=== PATIENT | female | born 2000 | race Caucasian/White ===

== ENCOUNTER 2021-09-01 09:16 | Outpatient (CLI) | payer OTHER, SELFPAY ==
[2021-09-01 10:28] LABS: Basophils Absolute Auto 0.1 K/mm3 (0.0-0.1); Basophils Percent Auto 0.9 % (0.2-1.2); Eosinophils Absolute Auto 0.2 K/mm3 (0-0.3); Eosinophils Percent Auto 3.5 % (0-4.4); Hematocrit 41.1 % (37.0-47.0); Hemoglobin 13.8 g/dL (12.0-15.0); Immature Granulocyte Absolute 0.02 K/mm3 (0.00-0.031); Immature Granulocyte Percent A 0.4 % (0-0.5); Lymphocytes Absolute Auto 1.87 K/mm3 (0.9-3.2); Lymphocytes Percent Auto 32.7 % (18.3-44.2); Mean Corpuscular HGB Conc 33.6 g/dl (32-36); Mean Corpuscular Hemoglobin 31.3 pg (26-34); Mean Corpuscular Volume 93.2 fl (80-100); Mean Platelet Volume 9.6 fl (7.4-10.4); Monocytes Absolute Auto 0.5 K/mm3 (0.1-0.6); Monocytes Percent Auto 9.1 % (2.6-8.5); Neutrophils Absolute Auto 3.1 K/mm3 (1.3-6.7); Neutrophils Percent Auto 53.4 % (45.5-73.1); Platelet Count Result 180 k/mm3 (150-375); Red Blood Count 4.41 M/mm3 (4.2-5.4); White Blood Count 5.7 K/mm3 (4.5-10.0)
[2021-09-01 10:45] LABS: Hemoglobin A1C 5.1 % (<5.7)
[2021-09-01 10:47] LABS: Iron 102 ug/dL (37-170)
[2021-09-01 10:48] LABS: Alanine Aminotransferase 11 U/L (6-35); Albumin Level 4.4 g/dL (3.5-5.1); Alkaline Phosphatase 34 U/L (38-126); Anion Gap 5 mmol/L (8-16); Aspartate Amino Transferase 24 U/L (14-36); Bilirubin,Total 0.5 mg/dL (0.2-1.3); Blood Urea Nitrogen 12 mg/dL (7-17); Calcium 8.4 mg/dL (8.4-10.2); Carbon Dioxide 26 mmol/L (22-30); Chloride 107 mmol/L (98-107); Cholesterol 131 mg/dL (0-200); Estimated Glomerular Filt Rate > 60; Glucose 80 mg/dL (65-110); HDL Direct 54 mg/dL; Potassium 3.9 mmol/L (3.4-5.0); Sodium 138 mmol/L (137-145); Triglycerides 40 mg/dL (<150)
[2021-09-01 10:56] LABS: LDL Cholesterol Direct 55 mg/dL
[2021-09-01 11:16] LABS: Hepatitis B Surface Antigen Negative (Negative)
[2021-09-01 11:22] LABS: HAV RESULT Negative (Negative); Hepatitis B Core IgM Result Negative (Negative)
[2021-09-01 11:33] LABS: Hepatitis C Virus Antibody Negative (Negative)
[2021-09-01 11:52] LABS: Folic Acid 7.5 ng/mL (2.76->20)
[2021-09-02 16:34] LABS: Toxigenic C. Diff NEGATIVE (NEGATIVE)
== END 2021-09-01 09:17 | disposition home or self-care (01) ==
LOC: ANHLAB 09:20
PROVIDERS: PCP Nurse Practitioner Family; Visit Provider Family Medicine Sports Medicine
DX: R10.30 Lower abdominal pain, unspecified (principal); R11.0 Nausea; R19.7 Diarrhea, unspecified
CPT/HCPCS: 36415; 80053; 80061; 80074; 82607; 82746; 83036; 83540; 84443; 85025; 87045; 87177; 87209; 87427; 87493

== ENCOUNTER 2023-04-20 14:37 | Emergency (ER) | payer OTHER, SELFPAY ==
--- NOTE | ~2023-04-20 | XR_ITS ---
EXAM: XR knee RT 3V DATE: 04/20/2023 17:45 HISTORY: right knee pain, STATES PREVIOUS INJURY . COMPARISON: 12/09/2018, images only; MR right knee 03/14/2019. FINDINGS: Normal mineralization. No fracture or dislocation. No lytic or blastic lesion. Joint space s are maintained. No erosion or periosteal change. Soft tissues within normal limits. IMPRESSION: No acute osseous finding in the right knee. Reviewed, dictated and finalized at location K. MOUNTER OPERATOR
[2023-04-20 15:09] VITALS: BP 121/81; PULSE 83; RESP 18; TEMP 36.3; O2SAT 100
--- NOTE | 2023-04-20 18:45 | ED.GENADULT ---
HPI - General Adult General Chief complaint: Extremity Injury, Lower Stated complaint: knee injury Time Seen by Provider: 04/20/23 17:34 History of Present Illness HPI narrative: 23-year-old female presenting to the emergency department for evaluation of right knee pain. Patient states for the last 6 years she has had intermittent knee pain. Patient states the last few days any pain has acutely worsened. Patient denies a specific falls or injuries. Patient describes circumferential knee pain. Related Data Home Medications Medication Instructions Recorded Confirmed ibuprofen 200 mg capsule 200 mg PO Q6H PRN 01/22/19 Allergies Allergy/AdvReac Type Severity Reaction Status Date / Time latex Allergy Rash Verified 04/20/23 17:32 Review of Systems Review of Systems: All systems reviewed & are unremarkable except as noted in HPI and below PMFSH Past Medical History Medical History (Updated 04/20/23 @ 18:49 by Amandeep Scott MD) Patella-femoral syndrome Right knee pain Family History Family History Other Diabetes mellitus Family history of kidney disease Hypertension Social History Social History Smoking status: Never smoker Exam Narrative: APPEARANCE: Well appearing, no pain, no distress, well-nourished. HEAD: normocephalic, atraumatic. EYES: PERRLA/EOMI, conjunctivae clear. NOSE: Normal no drainage NECK: Supple. No adenopathy, no masses. RESPIRATORY: Airway patent, respirations nonlabored. Clear to auscultation bilaterally, no rales, rhonchi, wheezing. CARDIOVASCULAR: Regular rate and rhythm without murmurs rubs or gallops. ABDOMINAL: Soft, nontender, nondistended, normal bowel sounds MUSCULOSKELETAL: Moves all extremities. anterior, posterior and bilateral knee pain with no significant effusion, deformity or erythema NEURO: Alert. Cranial nerves II through XII intact. Grossly intact SKIN: Warm, dry. Normal Color Course Course Emergency Course: 23 year old female presenting to the emergency department for evaluation of right knee pain. X-ray showed no acute fracture dislocation. Patient was provided knee immobilizer crutches for limited weight-bearing. Patient was encouraged of close follow-up with Orthopedics. All questions concerns were addressed patient was well-appearing at time of discharge. Vital Signs Vital signs: Vital Signs Temperature 97.4 F L 04/20/23 15:09 Pulse Rate 83 04/20/23 15:09 Respiratory Rate 18 04/20/23 15:09 Blood Pressure 121/81 04/20/23 15:09 Pulse Oximetry 100 04/20/23 15:09 Oxygen Delivery Room Air 04/20/23 15:09 Temperature 97.4 F L 04/20/23 15:09 Pulse Rate 72 04/20/23 18:56 Respiratory Rate 18 04/20/23 18:56 Blood Pressure 116/62 04/20/23 18:56 Pulse Oximetry 100 04/20/23 18:56 Oxygen Delivery Room Air 04/20/23 15:09 Medical Decision Making Differential Diagnosis Differential Diagnosis: knee effusion, septic arthritis, internal derangement Vital Signs Vital Signs: Vital Signs Temperature 97.4 F L 04/20/23 15:09 Pulse Rate 83 04/20/23 15:09 Respiratory Rate 18 04/20/23 15:09 Blood Pressure 121/81 04/20/23 15:09 Pulse Oximetry 100 04/20/23 15:09 Oxygen Delivery Room Air 04/20/23 15:09 Temperature 97.4 F L 04/20/23 15:09 Pulse Rate 72 04/20/23 18:56 Respiratory Rate 18 04/20/23 18:56 Blood Pressure 116/62 04/20/23 18:56 Pulse Oximetry 100 04/20/23 18:56 Oxygen Delivery Room Air 04/20/23 15:09 Discharge Plan Discharge Clinical Impression: Right knee pain Patient Disposition: Home, Self-Care Condition: Stable Instructions: Antibiotic Form, Crutch Instructions (ED), Knee Immobilizer (ED) Additional Instructions: Tylenol and ibuprofen for pain control. Knee immobilizer for increased comfort and stability. Crutches for limited w
[2023-04-20 18:56] VITALS: BP 116/62; PULSE 72; RESP 18; O2SAT 100
== END 2023-04-20 18:57 | disposition home or self-care (01) ==
PROVIDERS: Emergency Provider Emergency Medicine
DX: M25.561 Pain in right knee (principal)
CPT/HCPCS: 73562; 99283

== ENCOUNTER 2023-11-28 16:09 | Emergency (ER) | payer OTHER, SELFPAY ==
--- NOTE | 2023-11-28 16:12 | ED.URI ---
HPI - URI/Sore Throat General Chief Complaint: Upper Respiratory Infection Stated Complaint: Sinus/Bodyaches Time Seen by Provider: 11/28/23 16:33 Source: patient, RN notes reviewed and old records reviewed Mode of arrival: ambulatory Limitations: no limitations History of Present Illness HPI Narrative: 23-year-old female presents to the [facility] with complaints of body aches, sinus congestion since yesterday. Requesting a covid test Related Data Allergies Allergy/AdvReac Type Severity Reaction Status Date / Time latex Allergy Rash Verified 11/28/23 16:15 Review of Systems Review of Systems: All systems reviewed & are unremarkable except as noted in HPI and below Constitutional: Constitutional: Reports as per HPI and Reports body ache(s) Eyes: Eyes: Reports no additional eye complaints ENT: Reports as per HPI and Reports nasal discharge Cardiovascular: Cardiovascular: Reports no additional cardiovascular complaints, Denies chest pain and Denies dyspnea Respiratory: Respiratory: Reports no additional respiratory complaints, Denies chest congestion, Denies cough and Denies dyspnea Gastrointestinal: Gastrointestinal: Reports no additional gastrointestinal complaints, Denies abdominal pain, Denies nausea and Denies vomiting Musculoskeletal: Musculoskeletal: Reports no additional musculoskeletal complaints Integumentary/Breasts: Skin/Breast: Reports system reviewed and no additional complaints, except as docu Neurologic: Reports system reviewed and no additional complaints, except as documented Psychiatric: Psychiatric: Reports no additional psychiatric complaints Allergic/Immunologic: Allergic/Immunologic: Reports no additional allergic/immunologic complaints PMFSH Past Medical History Medical History Patella-femoral syndrome Right knee pain Family History Family History Other Diabetes mellitus Family history of kidney disease Hypertension Social History Social History Smoking status: Never smoker Comments At the time of my signature, I reviewed and agree with the nursing past medical, surgical, social, and family history. There is no relevant family history pertinent to the patient complaint. Exam Const: General: cooperative, healthy appearing, comfortable, no acute distress, well developed, alert and well nourished Nutritional Appearance: well nourished Orientation/consciousness: patient oriented x3 Limitations: no limitations HENMT: Head: normal to inspection Ears: hearing grossly normal bilaterally and external ears normal Face/Nose/Sinus: Normal external nose present, Normal nares present, Normal nasal mucous membranes and turbinates present, normal facial exam and face symmetric Face and sinus: normal facial exam and face symmetric Throat: uvula midline, postnasal drainage and no uvular edema Eyes: General: appearance normal, both eyes and all related structures Alignment and Position: alignment normal Periorbital: periorbital findings normal Neck: Neck: normal visual inspection, full ROM, no lymphadenopathy and no meningeal signs Chest: Chest palpation & inspection: normal inspection of the chest Resp: Effort & Inspection: normal respiratory effort and able to speak in complete sentences Cardio: Rate: regular rate Skin: General skin exam: normal color and no rashes or lesions noted Lesions: no lesions Rashes: no rashes Trauma: no lacerations or abrasions Wounds: no wounds Neuro: General: patient oriented x3, gait normal, tone normal, moves all extremities and no meningeal signs Cranial nerves: Yes Equal, round and reactive pupils present Cognition (Neuro): normal cognition Speech: normal speech Gait exam (Neuro): Normal gait present Extrem: General: normal to inspection, full ROM, capillary refill normal and omar
[2023-11-28 16:15] VITALS: BP 101/66; PULSE 75; RESP 14; TEMP 37.1; O2SAT 100
[2023-11-28 17:12] LABS: EDCOVIDSCREEN Negative (Negative)
== END 2023-11-28 16:47 | disposition home or self-care (01) ==
PROVIDERS: Emergency Provider Nurse Practitioner
DX: J06.9 Acute upper respiratory infection, unspecified (principal); R09.82 Postnasal drip; Z20.822 Contact with and (suspected) exposure to COVID-19
CPT/HCPCS: 87426; 99212; G0463

== ENCOUNTER 2024-02-13 17:49 | Emergency (ER) | payer OTHER, SELFPAY ==
--- NOTE | ~2024-02-13 | XR_ITS ---
EXAMINATION: XR knee RT min 4V DATE: 02/13/2024 18:28 INDICATION: Right knee pain. TECHNIQUE: 4 views of right knee were obtained. COMPARISON: Right knee radiographs 04/20/2023 FINDINGS: Alignment is normal. No fracture. Joint spaces are normal. No knee joint effusion. IMPRESSION: 1. Normal right knee. Reviewed, dictated and finalized at location A. ESTATE ASSISTANT IMPRESSION: 1. Normal right knee.
[2024-02-13 17:55] VITALS: BP 115/68; PULSE 74; RESP 16; TEMP 36.3; O2SAT 93
--- NOTE | 2024-02-13 21:30 | ED.LOWEXIN ---
HPI - Extremity Injury (Lower) General Chief Complaint: Extremity Injury, Lower Stated Complaint: right knee injury Time Seen by Provider: 02/13/24 20:26 History of Present Illness HPI Narrative: Patient is a 24-year-old female who reports her knee gave out on me when she was at work earlier today. She reports she is an active person and has had right knee pain intermittently since 2018. Patient endorses significant pain on the sides of her right knee, along with pain behind her knee. She denies hearing pops, denies any redness, calf pain, or recent fevers. Patient endorses periodically numbness and tingling in her right lower extremity. She denies any medical history related to this visit. Related Data Allergies Allergy/AdvReac Type Severity Reaction Status Date / Time latex Allergy Rash Verified 11/28/23 16:15 Review of Systems Review of Systems: All systems reviewed & are unremarkable except as noted in HPI and below PMFSH Past Medical History Medical History (Updated 02/13/24 @ 21:37 by Anya Dalton APRN) Patella-femoral syndrome Right knee pain Family History Family History Other Diabetes mellitus Family history of kidney disease Hypertension Social History Social History Smoking status: Never smoker Exam Narrative: GENERAL: Well appearing, well-nourished, non-toxic, in no acute distress. HEAD: Normocephalic, atraumatic. NECK: Supple. No adenopathy, no masses. RESPIRATORY: Airway patent, respirations nonlabored. Clear to auscultation bilaterally, no rales, rhonchi, wheezing. CARDIOVASCULAR: Regular rate and rhythm without murmurs, rubs, or gallops. Peripheral pulses 2+ and equal bilaterally. ABDOMINAL: Soft, nontender, nondistended, no hepatosplenomegaly. Normoactive BS. MUSCULOSKELETAL: Moves all extremities. Strength/ROM intact without gross deformities. SKIN: Warm, dry, normal color. No rashes. NEURO: A&O X3. Speech clear. Cranial nerves II-XII grossly intact. Steady gait. No ataxic movements. PSYCHIATRIC: Appropriate mood and affect. Normal interaction. Course Vital Signs Vital signs: Vital Signs Temperature 36.3 C L 12/12/24 17:55 Pulse Rate 74 02/13/24 17:55 Respiratory Rate 16 02/13/24 17:55 Blood Pressure 115/68 02/13/24 17:55 Pulse Oximetry 93 02/13/24 17:55 Temperature 36.3 C L 02/13/24 17:55 Pulse Rate 74 02/13/24 17:55 Respiratory Rate 16 02/13/24 17:55 Blood Pressure 115/68 02/13/24 17:55 Pulse Oximetry 93 02/13/24 17:55 MDM - Extremity Injury (Lower) MDM Narrative Medical decision making narrative: Patient is a 24-year-old female who reports her knee gave out on me when she was at work earlier today. She reports she is an active person and has had right knee pain intermittently since 2018. Patient endorses significant pain on the sides of her right knee, along with pain behind her knee. She denies hearing pops, denies any redness, calf pain, or recent fevers. Patient endorses periodically numbness and tingling in her right lower extremity. She denies any medical history related to this visit. Labs Ordered: None needed Imaging Ordered: R knee x-ray Results: Patient's right knee x-ray indicates Alignment is normal. No fracture. Joint spaces are normal. No knee joint effusion. Diagnosis: right knee strain Risks: Well's Score: zero Consults: orthopedics, outpatient Patient Education/Shared MDM: Results shared with patient. She will be discharged home with a prescription for steroids, NSAIDs, and a knee immobilizer. Patient should follow-up with orthopedics as soon as possible. She verbalizes understanding and is agreement with plan. 2130- Patient is in agreement with current treatment plan. All questions answered. Vital signs stable at time of discharge. Differential Diagnosis Differential diagnosis: Likely other (knee strain, knee sprain, meniscus tear) Imaging Data Attestation: I personally reviewed and interpreted this imaging study as follows: Radiologist's impression: Impressions Knee X-Ray 02/13/24 18:29 IMPRESSION: 1. Normal right knee. Discharge Plan Discharge Clinical Impression: Right knee pain Patient Disposition: Home, Self-Care Condition: Stable Instructions: Antibiotic Form, Knee Pain (ED) Additional Instructions: Please return to the ER with an worsening symptoms. Follow-up with primary care provider in the next 2-3 days. Take all medications as prescribed. Patient Language: [place] Follow-up/Referrals: PHYSICIAN,TUFT MACHINE OPERATOR [Primary Care Provider] -
== END 2024-02-13 22:30 | disposition home or self-care (01) ==
PROVIDERS: Emergency Provider Registered Nurse
DX: M25.561 Pain in right knee (principal)
CPT/HCPCS: 73564; 99283

== ENCOUNTER 2024-04-02 10:47 | Emergency (ER) | payer OTHER, SELFPAY ==
--- NOTE | ~2024-04-02 | XR_ITS ---
EXAMINATION: XR shoulder RT min 2V DATE: 04/02/2024 11:17 INDICATION: Right shoulder dislocation. TECHNIQUE: 2 views of right shoulder were obtained. COMPARISON: None. FINDINGS: Alignment is normal. No fracture. Joint spaces are normal. IMPRESSION: 1. Normal right shoulder. Reviewed, dictated and finalized at location A. ER HELPER IMPRESSION: 1. Normal right shoulder.
--- NOTE | 2024-04-02 10:53 | ED.UPPEXIN ---
HPI - Extremity Injury (Upper) General Chief Complaint: Extremity Injury, Upper Stated Complaint: right clavicle popped out of place Time Seen by Provider: 04/02/24 10:52 Source: patient Mode of arrival: ambulatory Limitations: no limitations History of Present Illness HPI narrative: Patient is a 24-year-old female who presents with right shoulder pain after dragging large heavy box at work on Saturday. Patient states she has had pain for the last 3 days. Patient has full range of motion with the pain. Denies any numbness, tingling or weakness. Related Data Home Medications ?Medication ?Instructions ?Recorded ?Confirmed ?Last Taken ?Type No Home Medications 04/02/24 04/02/24 Unknown History Allergies Allergy/AdvReac Type Severity Reaction Status Date / Time latex Allergy Rash Verified 04/02/24 11:02 Review of Systems Review of Systems: All systems reviewed & are unremarkable except as noted in HPI and below Constitutional: Constitutional: Denies body ache(s), Denies chills, Denies fatigue, Denies fever(s), Denies headache(s), Denies malaise and Denies weakness Eyes: Eyes: Denies blurry vision, Denies irritation and Denies loss of vision ENT: Denies otalgia, Denies headache(s), Denies nasal discharge, Denies sinus pain and Denies sore throat Cardiovascular: Cardiovascular: Denies chest pain, Denies irregular heart rhythm and Denies dyspnea Respiratory: Respiratory: Denies dyspnea Gastrointestinal: Gastrointestinal: Denies abdominal pain, Denies melena, Denies hematochezia, Denies diarrhea, Denies nausea and Denies vomiting Musculoskeletal: Musculoskeletal: Denies back pain, Denies myalgias and Reports arthralgias Integumentary/Breasts: Skin/Breast: Denies pruritus and Denies rash Neurologic: Denies headache(s), Denies loss of vision and Denies weakness Psychiatric: Psychiatric: Reports no additional psychiatric complaints Endocrine: Endocrine: Denies fatigue PMFSH Past Medical History Medical History (Updated 04/02/24 @ 11:50 by Silke Lawler APRN) Patella-femoral syndrome Right knee pain Family History Family History Other Diabetes mellitus Family history of kidney disease Hypertension Social History Social History Smoking status: Never smoker Comments At time of signature, agree with nursing past medical, surgical, social and family history. There is no relevant family history pertinent to the presenting complaint. Exam Const: General: cooperative, healthy appearing, comfortable, no acute distress and well nourished Nutritional Appearance: well nourished Orientation/consciousness: patient oriented x3 Limitations: no limitations HENMT: Head: normal to inspection, normocephalic and atraumatic Ears: hearing grossly normal bilaterally and external ears normal Face/Nose/Sinus: Normal external nose present, normal facial exam and face symmetric Face and sinus: normal facial exam and face symmetric Mouth: Yes lip normal Eyes: General: appearance normal, both eyes and all related structures Alignment and Position: alignment normal and position normal Periorbital: periorbital findings normal Eyelids: eyelids normal Pupils: Equal, round and reactive pupils present EOM: EOMs intact bilaterally Neck: Neck: normal visual inspection, full ROM and supple Chest: Chest palpation & inspection: normal inspection of the chest Resp: Effort & Inspection: normal respiratory effort and able to speak in complete sentences Auscultation: clear to auscultation bilaterally Cardio: Rate: regular rate Rhythm: regular rhythm Heart sounds: S1 normal heart sound present and S2 normal heart sound present GI: Inspection: normal to inspection Skin: General skin exam: normal color and no rashes or lesions noted Neuro: General: patient oriented x3 and moves all extremities Cranial nerves: Yes Equal, round and reactive pupils present Speech: normal speech Gait exam (Neuro): Normal gait present Extrem: General: normal to inspection, full ROM and no edema Right upper extremity: shoulder/upper arm tenderness of the clavicle laterally, axillary nerve sensory function normal and abnormal ROM pain with active ROM in ADduction and in ABduction; no swelling, no ecchymosis, no deformity and no unusual warmth Psych: Appearance: grossly normal and well kempt Mental Status: mental status grossly normal Speech and movement: Normal speech and movement present Affect: normal affect Attitude: cooperative Thought process: Normal thought process present Course Course Emergency Course: Patient is aware of diagnosis, understands and agrees to treatment plan. Anticipatory guidance given. Patient agrees to follow-up as directed and is aware of reasons to seek care at the emergency department. Portions of this record may have been created with voice recognition software Level of Care: Express Care Visit Vital Signs Vital signs: Vital Signs Temperature 35.8 C L 04/02/24 11:05 Pulse Rate 64 04/02/24 11:05 Respiratory Rate 16 04/02/24 11:05 Blood Pressure 107/74 04/02/24 11:05 Pulse Oximetry 99 04/02/24 11:05 Oxygen Delivery Room Air 04/02/24 11:05 Temperature 35.8 C L 04/02/24 11:05 Pulse Rate 64 04/02/24 11:05 Respiratory Rate 16 04/02/24 11:05 Blood Pressure 107/74 04/02/24 11:05 Pulse Oximetry 99 04/02/24 11:05 Oxygen Delivery Room Air 04/02/24 11:05 Reviewed MDM - Extremity Injury (Upper) MDM Narrative Medical decision making narrative: Pt well hydrated appearing, in no respiratory distress, hemodynamically stable. Recommend supportive care. The patient is stable at time of discharge the clinical impression was discussed and the patient was given the opportunity to ask questions, which were addressed as completely as possible given the information available at present. Anticipatory guidance and return to care precautions were discussed and the importance of primary care follow-up was stressed and encouraged. The patient voiced understanding of the plan, indications to return, and the need for follow-up. Exam findings show no acute concerns or changes Patient is appropriate for outpatient treatment and follow-up. Differential Diagnosis Differential diagnosis: Likely dislocation of shoulder, fracture of humerus, fracture of clavicle and other (Shoulder strain) Medical Records Attestation: I reviewed the patient's medical records. Imaging Data Radiologist's impression: EXAMINATION: XR shoulder RT min 2V DATE: 04/02/2024 11:17 INDICATION: Right shoulder dislocation. TECHNIQUE: 2 views of right shoulder were obtained. COMPARISON: None. FINDINGS: Alignment is normal. No fracture. Joint spaces are normal. IMPRESSION: 1. Normal right shoulder. Discharge Plan Discharge Clinical Impression: Right shoulder strain Patient Disposition: Home, Self-Care Condition: Stable Instructions: Shoulder Sprain (ED) Additional Instructions: Xray showed no fracture. Minimize activities that aggravate the condition The RICE protocol. Follow the RICE protocol as soon as possible after your injury:. Ice should be immediately applied to keep the swelling down. It can be used for 20 to 30 minutes, three or four times daily. Do not apply ice directly to your skin. Elevate your arm above the level of your heart as often as possible during the first 48 hours. For pain, you may take: Tylenol 650-1000mg by mouth every 4-6 hours. Do not exceed 4000mg in 24 hours. Advil (Ibuprofen) 600 mg by mouth every 6 hours. Do not exceed 2400mg in 24 hours. 8 AM: Tylenol 11 AM: Ibuprofen 2 PM: Tylenol 5 PM: Ibuprofen 8 PM: Tylenol 11 PM: Ibuprofen 2 AM: Tylenol 5 AM: Ibuprofen Please schedule a follow-up visit with your personal physician for further evaluation and treatment within 1week OR If your symptoms persist, change or worsen significantly before you can contact your personal physician then please, without delay, go to the emergency department for further evaluation. Patient Language: Somali Prescriptions: No Action No Home Medications Follow-up/Referrals: PHYSICIAN,ENTERPRISE APPLICATION ADMINISTRATOR [Primary Care Provider] - Ulisses Quiles MD [Physician] - 3 Days Stand Alone Forms: Work/School Release IP Time of Disposition: 11:50
[2024-04-02 11:05] VITALS: BP 107/74; PULSE 64; RESP 16; TEMP 35.8; O2SAT 99
== END 2024-04-02 11:55 | disposition home or self-care (01) ==
PROVIDERS: Emergency Provider Nurse Practitioner Family
DX: S43.401A Unspecified sprain of right shoulder joint, initial encounter (principal); X50.0XXA Overexertion from strenuous movement or load, initial encounter
CPT/HCPCS: 73030; 99213; G0463